=== PATIENT | male | born 2000 | race Caucasian/White ===

== ENCOUNTER 2021-12-04 18:50 | Emergency (ER) | payer SELFPAY ==
[2021-12-04 19:00] VITALS: BP 154/90; PULSE 76; RESP 18; TEMP 36.6; O2SAT 98; BMI 20.5
[2021-12-04 19:34] VITALS: BP 132/75; PULSE 66; RESP 16; TEMP 36.6; O2SAT 99; BMI 20.7
--- NOTE | 2021-12-04 19:35 | PC.NURSE ---
PATIENT SENT TO ER PER Rylan AGGARWAL APRN FOR FURTHER EVALUATION. REPORT GIVEN TO Delio DOZIER RN
--- NOTE | 2021-12-04 19:54 | CT_ITS ---
PROCEDURE INFORMATION: Exam: CT Abdomen And Pelvis With Contrast Exam date and time: 12/04/2021 8:14 PM Age: 21 years old Clinical indication: Abdominal pain; Localized; Right upper quadrant (ruq); Additional info: Ruq king TECHNIQUE: Imaging protocol: Computed tomography of the abdomen and pelvis with contrast. Radiation optimization: All CT scans at this facility use at least one of these dose optimization techniques: automated exposure control; mA and/or kV adjustment per patient size (includes targeted exams where dose is matched to clinical indication); or iterative reconstruction. Contrast material: ISOVUE; Contrast volume: 75 ml; Contrast route: IV; COMPARISON: No relevant prior studies available. FINDINGS: Liver: Normal. No mass. Gallbladder and bile ducts: No calcified stones. No ductal dilation. Pancreas: Normal enhancement. No ductal dilation. Spleen: No splenomegaly. Adrenal glands: No mass. Kidneys and ureters: No hydronephrosis. Stomach and bowel: Potential mild wall thickening of the descending and sigmoid colon which are decompressed and not well evaluated. Small bowel intussusception within left lower quadrant. No bowel obstruction. Appendix: Distal appendix appears somewhat prominent measuring 9 mm. Intraperitoneal space: No free air. No significant fluid collection. Vasculature: No abdominal aortic aneurysm. Lymph nodes: No enlarged lymph nodes. Urinary bladder: No acute abnormality. Reproductive: No acute abnormality. Bones/joints: No acute fracture. Soft tissues: No soft tissue swelling. IMPRESSION: Potential thickening of the appendix and colon which are not well evaluated. Appendicitis and/or colitis should be clinically excluded. Small bowel intussusception within the left lower quadrant which may be benign transient however pathologically point cannot be radiographically excluded.
[2021-12-04 20:20] LABS: Chloride 105 mmol/L (98-107); Sodium 142 mmol/L (136-145)
[2021-12-04 20:22] LABS: Alanine Aminotransferase 17 U/L (12-78); Aspartate Amino Transferase 31 U/L (17-59); Blood Urea Nitrogen 8 mg/dl (9-20); Creatinine Clearance Estimated 150 mL/min (50-200); Estimated Glomerular Filt Rate 142 ml/min (>60); GFR (African American) 172 ML/MIN (>60)
[2021-12-04 20:23] LABS: Albumin Level 4.7 g/dl (3.5-5.0); Albumin/Globulin Ratio 1.6 (1.1-1.8); Alkaline Phosphatase 101 U/L (38-126); Bilirubin,Total 0.8 mg/dl (0.2-1.3); Calcium 8.9 mg/dl (8.4-10.2); Carbon Dioxide 29 mmol/L (22.0-30.0); Globulin 2.9 g/dL (1.3-3.2); Glucose 88 mg/dl (74-100); Lipase 70 U/L (23-300); Total Protein,Serum 7.6 g/dl (6.3-8.2)
[2021-12-04 20:24] LABS: Basophils # 0.1 K/mm3 (0-0.2); Basophils % 0.7 % (0.1-2.0); Eosinophils % 0.1 % (0.1-12.0); Hematocrit 46.3 % (42.0-52.0); Hemoglobin 15.4 g/dL (14.1-18.0); Lymphocytes # 1.6 K/mm3 (0.7-4.5); Lymphocytes % 12.7 % (10-50); Mean Corpuscular HGB Conc 33.2 g/dL (31.8-35.4); Mean Corpuscular Hemoglobin 30.9 pg (27.0-31.2); Mean Corpuscular Volume 93.2 fl (80-94); Mean Platelet Volume 8.3 fl (7.4-10.4); Monocytes # 0.5 K/mm3 (0.1-1.0); Monocytes % 4.1 % (1.7-9.3); Neutrophils # 10.6 K/mm3 (1.8-7.8); Neutrophils % 82.4 % (37.0-80.0); Platelet Count 247 K/mm3 (142-424); Red Blood Count 4.97 M/mm3 (4.60-6.20); Red Cell Distribution Width 13.6 % (11.5-17.5); White Blood Count 12.9 K/mm3 (4.8-10.8)
[2021-12-04 20:28] LABS: C-Reactive Protein 1.7 mg/L (0-4)
[2021-12-04 20:30] VITALS: BP 128/80; PULSE 65; O2SAT 98
--- NOTE | 2021-12-04 20:42 | [facility].EDNVD ---
ED Disposition Clinical Impression: Acute appendicitis Qualifiers: Acute appendicitis type: unspecified acute appendicitis type Qualified Code(s): K35.80 - Unspecified acute appendicitis Disposition: Left Against Medical Advice Condition on Discharge: Good Instructions: DI for Appendicitis -- Adult Additional Instructions: return to ed for care Referrals: Provider,Referral, [Primary Care Provider] - - Critical Care Critical Care Time: No Attestation: On 12/04/21, the high probability of a clinically significant, sudden or life threatening deterioration of the following system(s) required my full and direct attention, intervention and personal management. The time I documented below is in addition to time spent performing reported procedures but includes the following listed in this critical care notation. Medical Decision Making - Medical Records Medical records reviewed: Yes: I reviewed the patient's medical records. - Mansoor Inquiry Pt receiving controlled substance: No Vital Signs: 12/04/21 19:00 12/04/21 19:34 Temperature 97.9 F 97.9 F Temperature Source Oral Oral Pulse Rate [Left Brachial] 76 66 Respiratory Rate 18 16 Blood Pressure [Left Arm] 154/90 H 132/75 Blood Pressure Mean [Left Arm] 111 94 Blood Pressure Source [Left Arm] Automatic Cuff Automatic Cuff Blood Pressure Position [Left Arm] Sitting Sitting 02 Sat by Pulse Oximetry 98 99 Oxygen Delivery Method Room Air Room Air - Lab Data Lab results reviewed: Yes: I reviewed the patient's lab results. Lab Results 12/04/21 20:08: WBC 12.9 H, RBC 4.97, Hgb 15.4, Hct 46.3, MCV 93.2, MCH 30.9, MCHC 33.2, RDW 13.6, Plt Count 247, MPV 8.3, Neut % (Auto) 82.4 H, Lymph % (Auto) 12.7, Maverick % (Auto) 4.1, Eos % (Auto) 0.1, Baso % (Auto) 0.7, Neut # (Auto) 10.6 H, Lymph # (Auto) 1.6, Maverick # (Auto) 0.5, Eos # (Auto) 0.0, Baso # (Auto) 0.1, ESR 3 12/04/21 20:08: Sodium 142, Potassium 4.0, Chloride 105, Carbon Dioxide 29, Anion Gap 12.0, BUN 8 L, Creatinine 0.70, Estimated Creat Clear 150, Estimated GFR 142, Est GFR ( Amer) 172, Glucose 88, Calcium 8.9, Total Bilirubin 0.8, AST 31, ALT 17, Alkaline Phosphatase 101, C-Reactive Protein 1.7, Total Protein 7.6, Albumin 4.7, Globulin 2.9, Albumin/Globulin Ratio 1.6, Lipase 70 Result diagrams: 12/04/21 20:08 12/04/21 20:08 Orders (Tests/Meds): ED MEDICATIONS Generic Name Dose Route Start Last Admin Trade Name Freq PRN Reason Stop Dose Admin Ampicillin Sodium/Sulbactam 100 mls @ 200 mls/hr 12/04/21 21:15 12/04/21 21:20 Sodium 3 gm/ Sodium Chloride IV 12/18/21 21:14 200 mls/hr Q6H AKANKSHA Administration Discontinued Medications Generic Name Dose Route Start Last Admin Trade Name Freq PRN Reason Stop Dose Admin Lactated Ringer's 1,000 mls @ 999 mls/hr 12/04/21 20:00 12/04/21 20:00 Lactated Ringer's 1000 Ml Bag IV 12/04/21 21:00 999 mls/hr .Q1H1M AKANKSHA Administration Iopamidol 75 ml 12/04/21 20:23 12/04/21 20:24 Iopamidol-370 (76%);100ml Bottle IV 12/04/21 20:24 75 ml ONCE ONE Administration Ketorolac Tromethamine 30 mg 12/04/21 19:54 12/04/21 20:00 Ketorolac 30mg/Ml Vial IV 12/04/21 19:55 30 mg ONCE ONE Administration Sodium Chloride 10 ml 12/04/21 20:23 12/04/21 20:24 Sodium Chloride 0.9% 10ml Syr (Rad Only) IV 12/04/21 20:24 10 ml ONCE ONE Administration ORDERS Category Date Time Status Rapid PCR Covid and Flu A/B Stat Lab 12/04/21 21:06 Ordered Urinalysis and Microscopic Stat Lab 12/04/21 19:54 Ordered - CT Data CT Scan: Abdomen, Pelvis Time Received: 21:[address] Reviewed: Yes: I have viewed the radiologist's interpretation Preliminary Findings: Abnormal (early appendicitis ) - Physician Consults Physician Consulted: [email or web address] Reason -: Pt condition Medical Decision Narrative: pt with prob early appendicitis - surg requestd admit with abx - pt declined admit and signed ama and instructed to return to ed Nausea/V
[2021-12-04 20:54] LABS: Erythrocyte Sedimentation Rate 3 mm/hr (0-15)
[2021-12-04 21:52] VITALS: BP 133/85; PULSE 65; RESP 16; TEMP 36.7; O2SAT 99
== END 2021-12-04 21:56 | disposition left against medical advice (07) ==
LOC: UTC 18:55 → ER 19:29
PROVIDERS: Emergency Provider Emergency Medicine
DX: K35.80 Unspecified acute appendicitis (principal)
CPT/HCPCS: 74177; 80053; 83690; 85025; 85651; 86140; 96361; 96365; 96374; 96375; 99284; Q9967